=== PATIENT | female | born 1995 | race Caucasian/White ===

== ENCOUNTER → 2022-04-11 | Outpatient (CLI) | payer BC, OTHER ==
[2022-04-13 04:08] LABS: CHLAMYDIA TRACHOMATIS, NAA Negative (Negative)
== END | disposition home or self-care (01) ==
LOC: LAB SHORT 16:00
PROVIDERS: Obstetrics & Gynecology
DX: Z34.81 Encounter for supervision of other normal pregnancy, first trimester (principal)
CPT/HCPCS: 87491; 87591

== ENCOUNTER → 2022-07-11 | Outpatient (CLI) | payer BC, OTHER | LOC: LAB 12:00 → LAB SHORT 12:00 | DX: Z34.02 Encounter for supervision of normal first pregnancy, second trimester (principal); R31.9 Hematuria, unspecified; R82.90 Unspecified abnormal findings in urine; Z3A.00 Weeks of gestation of pregnancy not specified | CPT/HCPCS: 87086; 87147 ==